=== PATIENT | female | born 1950 | race African-American/Black ===

== ENCOUNTER 2022-11-18 04:20 | Emergency (ER) | payer OTHER ==
[~2022-11-18] VITALS: Ht 165.1 cm; Wt 93.2 kg
[2022-11-18 04:43] VITALS: BP 135/57
[2022-11-18 05:58] LABS: BASOPHILS % 0.4 % (0.0-2.0); EOSINOPHILS % 2.6 % (0.0-5.0); HEMOGLOBIN. 11.9 g/dL (12.0-16.0); LYMPHOCYTES % 17.2 % (20.0-50.0); MEAN CORPUSCULAR HEMOGLOBIN 29.1 pg (28.0-32.0); MEAN CORPUSCULAR VOLUME 90.4 fL (81.0-99.0); MEAN PLATELET VOLUME 8.2 fl (7.4-10.4); MONOCYTES % 9.2 % (2.0-8.0); NEUTROPHILS % 70.6 % (40.0-76.0); PLATELET 243 x1000/uL (130-400); RED CELL DISTRIBUTION WIDTH 15.5 % (11.6-14.6)
[2022-11-18 06:21] LABS: CHLORIDE 112 mEq/L (98-107)
== END 2022-11-18 09:01 | disposition home or self-care (01) ==
LOC: ER 04:20 → CANBEDREQ 08:56 → ER 09:01
DX: R60.9 Edema, unspecified (principal); I10 Essential (primary) hypertension; Z88.8 Allergy status to other drugs, medicaments and biological substances
CPT/HCPCS: 36415; 71045; 80053; 83880; 84484; 85025; 93005; 93970; 99285

== ENCOUNTER 2023-06-08 20:07 | Emergency (ER) | payer OTHER ==
[~2023-06-08] VITALS: Ht 154.9 cm; Wt 98.0 kg
[2023-06-08 20:38] VITALS: BP 151/67; TEMP 98.7; O2SAT 98
[2023-06-08 21:06] VITALS: PULSE 69; RESP 16
[2023-06-08 22:47] LABS: GLUCOSE URINE NEGATIVE (NEGATIVE); KETONES URINE NEGATIVE (NEGATIVE)
[2023-06-08 23:21] LABS: CLARITY URINE CLEAR (CLEAR); COLOR URINE DARK YELLOW (YELLOW); SPECIFIC GRAVITY URINE 1.025 (1.005-1.030)
[2023-06-08 23:22] LABS: LEUKOCYTE ESTERASE URINE 1+ (NEGATIVE); NITRITE URINE NEGATIVE (NEGATIVE); OCCULT BLOOD URINE NEGATIVE (NEGATIVE); PROTEIN URINE NEGATIVE (NEGATIVE)
[2023-06-08] MEDS ORDERED: HYDR-4001 MT (23:25)
[2023-06-08] MEDS ORDERED: NITR-87 MT (23:27)
[2023-06-08 23:28] LABS: RBC URINE 0-2 /hpf (0-2)
[2023-06-08 23:29] LABS: BACTERIA URINE NONE SEEN; SQUAMOUS EPITHELIAL CELL URINE RARE /lpf (RARE/1+)
== END 2023-06-08 23:53 | disposition home or self-care (01) ==
LOC: ER 20:07
DX: G89.29 Other chronic pain (principal); M54.50 Low back pain, unspecified; I10 Essential (primary) hypertension; F20.9 Schizophrenia, unspecified; Z98.890 Other specified postprocedural states
CPT/HCPCS: 81003; 99283

== ENCOUNTER 2023-07-26 15:07 | Emergency (ER) | payer OTHER ==
[~2023-07-26] VITALS: Ht 154.9 cm; Wt 101.6 kg
[~2023-07-26 15:07] MED LIST: HYDR-4001 MT; NITR-87 MT
[2023-07-26 15:24] VITALS: O2SAT 98
[2023-07-26 17:46] LABS: BASOPHILS % 0.4 % (0.0-2.0); EOSINOPHILS % 0.1 % (0.0-5.0); HEMATOCRIT. 38.5 % (36.0-48.0); HEMOGLOBIN. 12.2 g/dL (12.0-16.0); LYMPHOCYTES % 7.3 % (20.0-50.0); MEAN CORPUSCULAR HEMOGLOBIN 29.6 pg (28.0-32.0); MEAN CORPUSCULAR HGB CONC 31.7 g/dL (31.0-37.0); MEAN CORPUSCULAR VOLUME 93.6 fL (81.0-99.0); MEAN PLATELET VOLUME 8.2 fl (7.4-10.4); MONOCYTES % 3.5 % (2.0-8.0); NEUTROPHILS % 88.7 % (40.0-76.0); PLATELET 297 x1000/uL (130-400); RED BLOOD CELL COUNT 4.11 mill/uL (4.2-5.4); RED CELL DISTRIBUTION WIDTH 15.7 % (11.6-14.6); WHITE BLOOD COUNT 11.3 x1000/uL (4.5-11.0)
[2023-07-26 18:01] LABS: ALANINE AMINOTRANSFERASE 33 IU/L (10-49); ASPARTATE AMINOTRANSFERASE 40 IU/L (<34); BILIRUBIN TOTAL 0.4 mg/dL (0.1-1.0); CALCIUM 9.6 mg/dL (8.7-10.4); CARBON DIOXIDE 27 mEq/L (21-32); CHLORIDE 111 mEq/L (98-107); CREATININE 0.8 mg/dL (0.6-1.0); GLUCOSE 107 mg/dL (70-105); POTASSIUM 4.1 mEq/L (3.5-5.1); PROTEIN TOTAL 7.5 g/dL (6.0-8.3); SODIUM 144 mEq/L (136-145); UREA NITROGEN BLOOD 18 mg/dL (9-23)
[2023-07-26 18:13] LABS: TROPONIN I HIGH SENSITIVITY 5 ng/L (3.0-34)
[2023-07-26 19:15] LABS: CLARITY URINE CLEAR (CLEAR); COLOR URINE DARK YELLOW (YELLOW); GLUCOSE URINE NEGATIVE (NEGATIVE); KETONES URINE NEGATIVE (NEGATIVE); LEUKOCYTE ESTERASE URINE 1+ (NEGATIVE); NITRITE URINE NEGATIVE (NEGATIVE); OCCULT BLOOD URINE NEGATIVE (NEGATIVE); PH URINE 5.5 (4.5-8.0); PROTEIN URINE TRACE (NEGATIVE); SPECIFIC GRAVITY URINE 1.027 (1.005-1.030)
[2023-07-26 19:29] LABS: BACTERIA URINE NONE SEEN; RBC URINE 0-2 /hpf (0-2); SQUAMOUS EPITHELIAL CELL URINE 1+ /lpf (RARE/1+)
[2023-07-26 20:30] LABS: TROPONIN I HIGH SENSITIVITY 4 ng/L (3.0-34)
[2023-07-26] MEDS ORDERED: CEFP100S5 MT (21:37)
[2023-07-26 21:40] VITALS: BP 195/85; PULSE 67; RESP 14; TEMP 97.8
== END 2023-07-26 21:48 | disposition home or self-care (01) ==
LOC: ER 15:07
DX: R42 Dizziness and giddiness (principal); I10 Essential (primary) hypertension; F20.9 Schizophrenia, unspecified; Z76.0 Encounter for issue of repeat prescription
CPT/HCPCS: 36415; 71045; 80053; 81003; 84484; 85025; 93005; 99285

== ENCOUNTER 2024-07-09 16:39 | Emergency (ER) | payer BC, MEDICARE ==
[~2024-07-09] VITALS: Ht 162.6 cm; Wt 93.0 kg
[~2024-07-09 16:39] MED LIST changes: +AMLO10TA80 PO; +ATOR20TA PO; +AZIT500T8 PO; +BENZ100C86 PO; +DEXTL PO; -HYDR-4001 MT; +LOSA25TA26 PO; +METO-396 MT; -NITR-87 MT; +RISP1 PO; +SERT50TA PO
[2024-07-09 16:59] VITALS: O2SAT 99
[2024-07-09 22:38] LABS: CLARITY URINE CLEAR (CLEAR); COLOR URINE DARK YELLOW (YELLOW); GLUCOSE URINE NEGATIVE (NEGATIVE); KETONES URINE NEGATIVE (NEGATIVE); LEUKOCYTE ESTERASE URINE 1+ (NEGATIVE); NITRITE URINE NEGATIVE (NEGATIVE); OCCULT BLOOD URINE NEGATIVE (NEGATIVE); PROTEIN URINE NEGATIVE (NEGATIVE); SPECIFIC GRAVITY URINE 1.019 (1.005-1.030)
[2024-07-09 22:51] LABS: BACTERIA URINE NONE SEEN; RBC URINE NONE SEEN /hpf (0-2); SQUAMOUS EPITHELIAL CELL URINE RARE /lpf (RARE/1+); WBC URINE 0-2 /hpf (0-2)
[2024-07-09 23:52] LABS: BASOPHILS % 0.3 % (0.0-2.0); EOSINOPHILS % 2.6 % (0.0-5.0); HEMATOCRIT. 39.9 % (36.0-48.0); HEMOGLOBIN. 12.8 g/dL (12.0-16.0); LYMPHOCYTES % 16.4 % (20.0-50.0); MEAN CORPUSCULAR HEMOGLOBIN 29.4 pg (28.0-32.0); MEAN CORPUSCULAR HGB CONC 32.1 g/dL (31.0-37.0); MEAN CORPUSCULAR VOLUME 91.5 fL (81.0-99.0); MEAN PLATELET VOLUME 8.6 fl (7.4-10.4); MONOCYTES % 6.9 % (2.0-8.0); NEUTROPHILS % 73.8 % (40.0-76.0); PLATELET 236 x1000/uL (130-400); RED BLOOD CELL COUNT 4.36 mill/uL (4.2-5.4); RED CELL DISTRIBUTION WIDTH 15.7 % (11.6-14.6); WHITE BLOOD COUNT 8.1 x1000/uL (4.5-11.0)
[2024-07-10 00:08] LABS: CHLORIDE 108 mEq/L (98-107); POTASSIUM 3.6 mEq/L (3.5-5.1); SODIUM 143 mEq/L (136-145)
[2024-07-10 00:09] LABS: CARBON DIOXIDE 30 mEq/L (21-32)
[2024-07-10 00:14] LABS: CREATININE 0.7 mg/dL (0.6-1.0); GLUCOSE 90 mg/dL (70-105); UREA NITROGEN BLOOD 10 mg/dL (9-23)
[2024-07-10] MEDS: CYCLOBENZAPRINE 10MG TABLET PO ONE (00:14)
[2024-07-10 00:16] LABS: ALANINE AMINOTRANSFERASE 29 IU/L (10-49); ALBUMIN 4.4 g/dL (3.2-4.8); ASPARTATE AMINOTRANSFERASE 32 IU/L (<34); BILIRUBIN TOTAL 0.7 mg/dL (0.1-1.0); PROTEIN TOTAL 6.9 g/dL (6.0-8.3)
[2024-07-10 00:20] LABS: TROPONIN I HIGH SENSITIVITY < 4 ng/L (3.0-34)
[2024-07-10] MEDS ORDERED: CEFP200T13 MT (00:26)
[2024-07-10] MEDS ORDERED: CYCL5TAB3 MT (00:27)
[2024-07-10 00:50] VITALS: BP 142/70; PULSE 58; RESP 18; TEMP 37.16964; O2SAT 100
[2024-07-10] MEDS ORDERED: ACET-2708 MT (20:33)
== END 2024-07-10 00:50 | disposition home or self-care (01) ==
LOC: ER 16:39
DX: N30.90 Cystitis, unspecified without hematuria (principal); R53.1 Weakness; I10 Essential (primary) hypertension; E78.5 Hyperlipidemia, unspecified; F20.9 Schizophrenia, unspecified; Z76.0 Encounter for issue of repeat prescription; Z79.899 Other long term (current) drug therapy; Z88.8 Allergy status to other drugs, medicaments and biological substances
CPT/HCPCS: 36415; 71045; 80053; 81003; 84484; 85025; 93005; 99285

== ENCOUNTER 2024-07-10 18:00 | Emergency (ER) | payer BC ==
[~2024-07-10] VITALS: Ht 162.6 cm; Wt 93.0 kg
[~2024-07-10 18:00] MED LIST changes: +CEFP200T13 MT; +CYCL5TAB3 MT
[2024-07-10 18:26] VITALS: BP 148/79; RESP 18; TEMP 98.8; O2SAT 100
[2024-07-10 18:42] VITALS: PULSE 72; O2SAT 97
[2024-07-10] MEDS ORDERED: ACET-2708 MT (20:33)
[2024-07-10] MEDS: ACETAMINOPHEN 325MG TABLET PO ONE (20:36)
== END 2024-07-10 22:12 | disposition home or self-care (01) ==
LOC: ER 18:00
DX: M79.674 Pain in right toe(s) (principal); I10 Essential (primary) hypertension; Z79.899 Other long term (current) drug therapy; Z98.890 Other specified postprocedural states; Z88.8 Allergy status to other drugs, medicaments and biological substances
CPT/HCPCS: 73660; 99283

== ENCOUNTER 2024-09-15 07:52 | Emergency (ER) | payer BC, OTHER ==
[~2024-09-15] VITALS: Ht 165.1 cm; Wt 75.0 kg
[~2024-09-15 07:52] MED LIST changes: +ACET-2708 MT
[2024-09-15 07:57] VITALS: TEMP 36.6; O2SAT 97
[2024-09-15] MEDS ORDERED: ACETAMINOPHEN 325MG TABLET PO STA (08:45)
[2024-09-15] MEDS ORDERED: IBUPROFEN 600MG TABLET PO STA (08:45)
[2024-09-15 09:18] LABS: BASOPHILS % 0.2 % (0.0-2.0); EOSINOPHILS % 2.1 % (0.0-5.0); HEMATOCRIT. 35.2 % (36.0-48.0); HEMOGLOBIN. 11.4 g/dL (12.0-16.0); MEAN CORPUSCULAR HEMOGLOBIN 29.6 pg (28.0-32.0); MEAN CORPUSCULAR HGB CONC 32.3 g/dL (31.0-37.0); MEAN CORPUSCULAR VOLUME 91.7 fL (81.0-99.0); MEAN PLATELET VOLUME 8.2 fl (7.4-10.4); MONOCYTES % 8.3 % (2.0-8.0); NEUTROPHILS % 75.4 % (40.0-76.0); PLATELET 205 x1000/uL (130-400); RED BLOOD CELL COUNT 3.84 mill/uL (4.2-5.4); RED CELL DISTRIBUTION WIDTH 15.9 % (11.6-14.6); WHITE BLOOD COUNT 6.8 x1000/uL (4.5-11.0)
[2024-09-15 09:27] LABS: CHLORIDE 109 mEq/L (98-107); POTASSIUM 3.6 mEq/L (3.5-5.1); SODIUM 146 mEq/L (136-145)
[2024-09-15 09:28] LABS: CARBON DIOXIDE 32 mEq/L (21-32)
[2024-09-15 09:29] LABS: CALCIUM 8.7 mg/dL (8.7-10.4)
[2024-09-15 09:33] LABS: CREATININE 0.6 mg/dL (0.6-1.0); GLUCOSE 101 mg/dL (70-105); UREA NITROGEN BLOOD 13 mg/dL (9-23)
[2024-09-15 11:19] VITALS: BP 123/53; PULSE 60; RESP 18; TEMP 97.8
[2024-09-15] MEDS: IBUPROFEN 600MG TABLET PO NR (11:19)
[2024-09-15] MEDS: ACETAMINOPHEN 325MG TABLET PO NR (11:19)
[2024-09-15] MEDS ORDERED: IBUP-2029 MT (11:35)
[2024-09-15] MEDS ORDERED: TOPUD PO (11:35)
== END 2024-09-15 12:20 | disposition home or self-care (01) ==
LOC: ER 07:52
DX: M54.50 Low back pain, unspecified (principal); M25.569 Pain in unspecified knee; M79.601 Pain in right arm; M45.2 Ankylosing spondylitis of cervical region; R53.1 Weakness; E78.00 Pure hypercholesterolemia, unspecified; F20.9 Schizophrenia, unspecified; I11.0 Hypertensive heart disease with heart failure; I50.9 Heart failure, unspecified; Z79.899 Other long term (current) drug therapy; Z88.8 Allergy status to other drugs, medicaments and biological substances
CPT/HCPCS: 36415; 71045; 80048; 85025; 93005; 99285